=== PATIENT | male | born 1950 | race Caucasian/White ===

== ENCOUNTER 2016-05-15 13:06 | Emergency (ER) | payer MEDICARE, BC, OTHER ==
[~2016-05-15] VITALS: Ht 172.7 cm; Wt 70.8 kg
[~2016-05-15 13:06] MED LIST: ASPIRIN E.C.81 MG PO; B12 INJ.,1000 MCG/M; CARVEDILOL 1212.5 MG PO; DOCUSATE SODIU250 M1 PO; FERRO-TIME325 MG PO; FOLIC ACID1 MG; IRON TABLETS325 MG PO; LEVAQUIN750 MG PO; LISINOPRIL 10MG10 MG; LISINOPRIL 10MG10 MG PO; LOPRESSOR 25MG.25 MG PO; METOPROLOL 25MG; NORCO 325 MG-51 TAB PO; PHENOBARBITAL; PROTONIX 40MG T40 MG PO; ROBAXIN-750750 MG PO; SIMVASTATIN40 MG PO
--- NOTE | 2016-05-15 14:11 | Urgent Treatment Center Report ---
History of Present Issue Date/Time Seen by Provider 05/15/16 1330 Visit Reason Pt arrived:Walked Presenting Problem:SWELLING AND BRUISING TO L 4TH FINGER R/T FALL EARLY THIS AM. PT STATES "STRAIGHTENED MY FINGER BACK OUT AFTER THE FALL" Location if Accident: Onset of symptoms date/time:05/15/16 or onset unknown for: Have you (or family members/close friends) recently traveled outside the [place]? N If Yes, where/when: Have you had exposure to infectious disease within the past month? TB? Other? Specify: ALLERGIES Coded Allergies: dopamine (Mild, 03/03/16) Home Medications Active Scripts HYDROCODONE/ACETAMINOPHEN ([place] 5-325 Tablet) 1 TAB PO Q4HP PRN PAIN PER PATIENT #10 TAB Prov: 04/13/14 Ferrous Sulfate (Iron Tablet) 325 MG PO DAILY #30 ECT Ref 11 Prov: 04/13/14 Carvedilol (Carvedilol 12.5MG) 12.5 MG PO BID #60 TAB Ref 11 Prov: 04/13/14 Reported Medications Simvastatin (Simvastatin 40MG Tab) 20 MG PO QHS Aspirin (Aspirin E.c.) 81 MG PO DAILY Pantoprazole Sodium (Protonix 40MG TAB) 40 MG PO DAILY LISINOPRIL (Lisinopril) 5 MG PO DAILY Methocarbamol (Robaxin 750MG) 750 MG PO QHS History Medical History General CAD? No Angina: No [place]: Yes Hypertension? No Hyperlipidemia? No CHF? No DVT? No PE? No COPD? No Asthma? No Anemia? Yes GERD? No Gastric ulcers? No GI Bleed? No Hernia? No Thyroid Problems? No Hypothyroidism? No CVA? Yes Seizures? Yes Diabetes? No Renal Insuffiency? No UTI? No Stones? No BPH? No GB Disease: No Nephritic Syndrome? No Asplenia? No Hepatitis? Yes Sickle Cell Disease? No Arthritis? No Migraines? No Cataracts? No Glaucoma? No MRSA? No HIV? No TB? No Anxiety? No Depression? No Cancer? Yes Site: STOMACH - REMOVEDN More? No Immunization HX DT/Tetanus 5-10 Years Ago Flu 2013-FSN Pneumonia Received In Past Surgical Hx Previous Surgery?Y Lung Appendix Brain surgery STOMACH SURGERY FOR CA AICD Family History Family HX Diabetes Yes CAD Yes Hypertension No Hyperlipidemia No Cancer No TB No Social History Smoking Hx Smoker: Former Smoker Tobacco: Yes Type Cigarettes Packs/day 1 1/2 - 2 Packs Alcohol Alcohol: No Review of Systems All Other Systems Reviewed and Negative Comment Patient feel out of chair at home complaining of pain in his left ring finger and bilateral hand and wrist pain states that his right hurts worse than his left Physical Exam Vital Signs Vital Signs Date Time Temp Pulse Resp B/P Pulse O2 O2 Flow FiO2 Ox Delivery Rate 05/15 1340 97.6 77 18 148/80 95 05/15 1310 77 18 148/80 95 General Appearance normal appearance, no apparent distress, mild distress Respiratory Status Yes: trachea midline, chest symmetrical, non tender chest. No: respiratory distress. 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 No Results/Orders Orders Procedure Date/time Status UTC STABILIZE JOINT/AREA 05/15 1441 Active WRIST-3 VIEWS-RT 05/15 1347 Active WRIST-3 VIEWS-LT 05/15 1347 Active HAND-RT 3 VIEWS 05/15 1347 Active HAND-LT-3 VIEWS 05/15 1347 Active XRAY/CT/US XRAY/CT/US XR interpretation by reviewed by me Xray Results no fracture seen, WIll splint left ring finger, will verify reading with Radiologist and call patient if any changes Departure Departure Time of Disposition 1442 Disposition DC Home or Self Care(routine) Clinical Impression Primary Impression: Finger injury Qualifiers: Encounter type: initial encounter Laterality: left Qualified Code: S69.92XA - Unspecified injury of left wrist, hand and finger(s), initial encounter Condition STABLE Referrals Elisha Palomares MD (Family) Patient Instructions DI for Finger Sprain, How to Prevent Falls Additional Instructions Over the counter Motrin or Tylenol as needed for pain Follow up with family doctor Return if needed Discharge Counseling Counseled pt/family regarding diagnosis, test results, home care, follow up needs at [phone]
[2016-05-15 14:45] VITALS: BP 148/80
--- NOTE | 2016-05-15 17:01 | RADIOLOGY REPORT PS360 ---
WRIST-3 VIEWS-LT INDICATION: Left wrist pain Fell out of chair and hurt hand and wrist. TECHNIQUE: 3 views COMPARISON: Left hand 3 views from today and right wrist from today FINDINGS: The left wrist appears intact No discrete fracture nor dislocation evident Slight undulation cortex at distal radius most likely reflects residual from old close growth plate. No acute fracture. Fat planes appear normal anterior to the wrist. Small corticated accessory ossification at the ulnar styloid Carpals with normal relationships no good evidence of fracture. If pain at snuffbox may want to consider follow-up ulnar deviation navicular views. Visualized joint space well maintained. Normal mineralization. No obvious radio opaque foreign bodies. IMPRESSION: No acute fracture. Left wrist intact.
--- NOTE | 2016-05-15 17:08 | RADIOLOGY REPORT PS360 ---
WRIST-3 VIEWS-RT ORDERING PHYSICIAN : DONALDO SY APRN PATIENT AGE: 65 years GENDER: Male INDICATION: FELL OUT OF CHAIR fell on right and left hand and wrist. Pain at left ring finger and left breast TECHNIQUE: 3 views right wrist COMPARISON: Right hand from today FINDINGS Diffuse mineralization. Right hand and wrist compared to the left Patient has had a stroke I am told he fell landing on right wrist but has no pain at the right wrist . However the lack of pain may reflect some decreased sensitivity here due to stroke. Radiographically there is suspicion a very subtle nondisplaced hairline macro fracture through the distal metaphysis of the radius. The patient has no pain here than simple follow-up would be adequate particularly since it sounds of this is a unusual right wrist and hand The carpals appear intact.. Findings discussed with Donaldo AYALA at [facility] IMPRESSION: Radiographically question & suspect of a very subtle nondisplaced hairline microfracture distal metaphysis of the distal right radius. However I'm told patient did not have pain here. Thus This can be followed clinically
--- NOTE | 2016-05-15 17:10 | RADIOLOGY REPORT PS360 ---
HAND-RT 3 VIEWS ORDERING PHYSICIAN : DONALDO SY APRN PATIENT AGE: 65 years GENDER: Male INDICATION: FELL OUT OF CHAIR Right hand pain TECHNIQUE: 3 views right hand COMPARISON: Left hand 3 views FINDINGS Demineralization of the right hand versus left. No acute fracture nor dislocation at right hand. Again question and suspect of a possible very subtle the distal radial metaphysis as discussed on right wrist report. Carpals, fingers and metacarpals appear intact. Minor degenerative changes fourth MCP joint IMPRESSION: ----- No fracture involving fingers are right hand (Again cannot exclude subtle nondisplaced hairline macro fracture at distal radial metaphysis)
--- NOTE | 2016-05-15 17:12 | RADIOLOGY REPORT PS360 ---
HAND-LT-3 VIEWS ORDERING PHYSICIAN : DONALDO SY APRN PATIENT AGE: 65 years GENDER: Male INDICATION: FELL OUT OF CHAIR Pain mainly at the ring finger. HISTORY suggest Dislocated and reduced IP joint dislocation by patient. TECHNIQUE: 3 views left hand COMPARISON: Right hand from today FINDINGS The patient's injury and pain was at the ring finger. No fracture evident. Normal relationships. IP joints MCP joint satisfactory Small osseous fragment at the lateral margin of fifth MCP joint noted but I understand there is no pain here thus these may merely reflect some minimal dystrophic calcifications or old injury. Other fingers unremarkable. IMPRESSION: The injured painful left ring finger is intact Minimal calcification along lateral margin fifth MCP joint most likely old finding as patient with no pain here
== END 2016-05-15 14:50 | disposition home or self-care (01) ==
LOC: ER 13:06 → UTC 13:22
PROC: 2W3KX1Z Immobilization of Left Finger using Splint (ICD-10-PCS; principal; 2016-05-15)
DX: S69.92XA Unspecified injury of left wrist, hand and finger(s), initial encounter (principal); W01.0XXA Fall on same level from slipping, tripping and stumbling without subsequent striking against object, initial encounter; Y92.009 Unspecified place in unspecified non-institutional (private) residence as the place of occurrence of the external cause

== ENCOUNTER 2016-10-25 11:26 | Emergency (ER) | payer MEDICARE, BC, OTHER ==
[~2016-10-25] VITALS: Ht 172.7 cm; Wt 74.8 kg
[2016-10-25 11:51] LABS: LYMPH # 1.1 K/mm3 (0.7-4.5); LYMPH % 12.4 % (10-50)
--- NOTE | 2016-10-25 11:51 | Emergency Room Report ---
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 N Clinical Suspician of Infection? N Mental Status: 1 - Regular (Normal Baseline) Sepsis Risk:Low Sepsis Risk Have you (or family members/close friends) recently traveled outside the [place]? N If Yes, where/when: Have you had exposure to infectious disease within the past month? N TB? Other? Specify: Patient with hx of CVA remotely, baseline weakness/decreased sensation on right with expressive aphasia baseline; therefore, information obtained from patient as well as his hired general internal medicine doctor, and EMS. Patient has had periumbilical abdominal pain since 10/24/16 with diminished appetite; NPO today and ate eggs yesterday; moving bowels well; denies blood from above or below; no fever; no cough or syncope; no new neurological sx. No urinary sx and usually urinates TID baseline. Pain is nonradiating. Hx of appy. Cared for at [facility], and reports hx of colon CA. Prior hemoglobin was just above 9 in April,. ALLERGIES Coded Allergies: dopamine (Mild, 03/03/16) Home Medications Active Scripts HYDROCODONE/ACETAMINOPHEN ([place] 5-325 Tablet) 1 TAB PO Q4HP PRN PAIN PER PATIENT #10 TAB Prov: 04/13/14 Ferrous Sulfate (Iron Tablet) 325 MG PO DAILY #30 ECT Ref 11 Prov: 04/13/14 Carvedilol (Carvedilol 12.5MG) 12.5 MG PO BID #60 TAB Ref 11 Prov: 04/13/14 Reported Medications Simvastatin (Simvastatin 40MG Tab) 20 MG PO QHS Aspirin (Aspirin E.c.) 81 MG PO DAILY Pantoprazole Sodium (Protonix 40MG TAB) 40 MG PO DAILY LISINOPRIL (Lisinopril) 5 MG PO DAILY Methocarbamol (Robaxin 750MG) 750 MG PO QHS History Medical History General CAD? No Angina: No CA: Yes Hypertension? No Hyperlipidemia? No CHF? No DVT? No PE? No COPD? No Asthma? No Anemia? Yes GERD? No Gastric ulcers? No GI Bleed? No Hernia? No Thyroid Problems? No Hypothyroidism? No CVA? Yes Seizures? Yes Diabetes? No Renal Insuffiency? No End Stage Renal Disease? No UTI? No Stones? No BPH? No GB Disease: No Nephritic Syndrome? No Asplenia? No Hepatitis? Yes Sickle Cell Disease? No Arthritis? No Migraines? No Cataracts? No Glaucoma? No MRSA? No HIV? No TB? No Anxiety? No Depression? No Cancer? Yes Site: STOMACH - REMOVEDN More? No Immunization Hx DT/Tetanus 5-10 Years Ago Flu 5709-4011 Flu Season Pneumonia Received In Past Surgical Hx Previous Surgery?Y Lung Appendix Brain surgery STOMACH SURGERY FOR CA AICD Family History Family Hx Diabetes Yes CAD Yes Hypertension No Hyperlipidemia No Cancer No TB No Social History Smoking Hx Smoker: Former Smoker Tobacco: Yes Type Cigarettes Packs/day 1 1/2 - 2 Packs Alcohol Alcohol: No Review of Systems All Other Systems Reviewed and Negative Gastrointestinal see HPI Psychiatric/Neurological pre-existing deficit Physical Exam Vital Signs Vital Signs Date Time Temp Pulse Resp B/P Pulse O2 O2 Flow FiO2 Ox Delivery Rate 10/25 1129 98.4 99 18 164/67 97 General Appearance normal appearance, WD/WN, no apparent distress Eye Exam - bilateral eye normal exam, bilateral eye PERRL Neck normal inspection, non-tender, supple, full range of motion Respiratory Status Yes: trachea midline, chest symmetrical, non tender chest. No: respiratory distress, tender on palpation, use of accessory muscles, pain on inspiration, pain on expiration, productive cough, non productive cough. Lung Sounds bilateral: normal breath sounds, lungs clear. Cardiovascular normal exam, regular rate/rhythm, no peripheral edema, no gallop, no JVD, no murmur, no rub, normal peripheral pulses Gastrointestinal normal bowel sounds, normal exam, soft, no organomegaly, no pulsatile mass, no guarding, no rebound Extremities normal inspection, no calf tenderness, no pedal edema Neurologic alert, oriented x 3, baseline expressive aphasia; baseline R hemiparesis and right facial droop; is alert and answers questions appropriately ; no tremor. Glascow Coma Scale Glascow Coma Scale Response Value EYE response: 4 Spontaneously 4 MOTOR response: 6 OBEYS 6 VERBAL response: 5 Oriented & Converses 5 Total 15 Skin intact, warm/dry, no rash cons.w/shingles, pallor Medical Decision Making LABS/Meds/Orders Pt receiving controlled substance in ED? No Results/Orders Laboratory Tests 10/25/16 1240: Urine Color YELLOW, Urine Appearance CLEAR, Urine pH 6.5, Ur Specific [place] 1.015, Urine Protein NEGATIVE, Urine Ketones NEGATIVE, Urine Blood NEGATIVE, Urine Nitrate NEGATIVE, Urine Bilirubin NEGATIVE, Urine Urobilinogen 0.2, Ur Leukocyte Esterase NEGATIVE, Urine WBC OCC, Urine Bacteria 1+, Hyaline Casts 3-5 , Urine Glucose NEGATIVE 10/25/16 1118: Sodium 130 L, Potassium 4.1, Chloride 94 L, Carbon Dioxide 27, BUN 9, Creatinine 1.0, Estimated Creat Clear 77, Estimated GFR (MDRD) 75, Glucose 143 H, Calcium 9.1, Total Bilirubin 0.3, AST 16, ALT 13, Alkaline Phosphatase 130 H , Total Protein 8.1, Albumin 3.6, Globulin 4.5 H, Albumin/Globulin Ratio 0.8 L , Amylase 101, Lipase 185, WBC 8.9, RBC 3.85 L, Hgb 11.5 L, Hct 34.0 L, MCV 88.3, RDW 13.6, Plt Count 454 H, MPV 7.1 L, Gran % 78.2, Gran # 7.0, Lymphocytes % 12.4, Monocytes % 5.9, Eosinophils % 3.1, Basophils % 0.4, Lymphocytes # 1.1, Monocytes # 0.5, Eosinophils # 0.3, Basophils # 0.0, PUBS MCHC 33.8, MCH 29.8 Current Medication Orders Sig/Rita Start time Last Medication Dose Route Stop Time Status Admin Sodium Chloride 10 ML PRN PRN 10/25 1145 AC IV 10/26 1140 Orders Procedure Date/time Status DIET-NOTHING BY MOUTH 10/25 D Active URINALYSIS/COMPLETE 10/[address] ABD/PELVIS REQ 10/25 1140 Complete IV SALINE LOCK 10/25 1140 Active LIPASE 10/25 1140 Complete CBC WITH AUTO DIFF 10/25 1140 Complete CHEM 12 PROFILE 10/25 1140 Complete AMYLASE 10/25 1140 Complete XRAY/CT/US XRAY/CT/US CT abdomen, pelvis CT interpretation by reviewed by me (report reviewed) Time results known: 1316 CT Results normal/NAD (large gallstone) Departure Departure Time of Disposition 1316 Disposition DC Home or Self Care(routine) Clinical Impression Primary Impression: Cholelithiasis Condition STABLE Patient Instructions Gallstones Additional Instructions See the surgeon at [facility] for large gallstone. Rx Zofran. Discharge Counseling Counseled pt/family regarding diagnosis, test results, medications/RX, home care, alcohol counseling,> 3min Prescriptions Current Visit Scripts Ondansetron (Zofran 4MG Odt) 4 MG PO Q6HP PRN NAUSEA AND VOMITING #10 ODT generic acceptable ED Critical Care Critical Care No at 0837
--- NOTE | 2016-10-25 11:51 | Emergency Room Report ---
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 N Clinical Suspician of Infection? N Mental Status: 1 - Regular (Normal Baseline) Sepsis Risk:Low Sepsis Risk Have you (or family members/close friends) recently traveled outside the [place]? N If Yes, where/when: Have you had exposure to infectious disease within the past month? N TB? Other? Specify: Patient with hx of CVA remotely, baseline weakness/decreased sensation on right with expressive aphasia baseline; therefore, information obtained from patient as well as his hired diamond cleaner, and EMS. Patient has had periumbilical abdominal pain since 10/24/16 with diminished appetite; NPO today and ate eggs yesterday; moving bowels well; denies blood from above or below; no fever; no cough or syncope; no new neurological sx. No urinary sx and usually urinates TID baseline. Pain is nonradiating. Hx of appy. Cared for at the [facility], and reports hx of colon CA. Prior hemoglobin was just above 9 in April,. ALLERGIES Coded Allergies: dopamine (Mild, 03/03/16) Home Medications Active Scripts HYDROCODONE/ACETAMINOPHEN ([place] 5-325 Tablet) 1 TAB PO Q4HP PRN PAIN PER PATIENT #10 TAB Prov: 04/13/14 Ferrous Sulfate (Iron Tablet) 325 MG PO DAILY #30 ECT Ref 11 Prov: 04/13/14 Carvedilol (Carvedilol 12.5MG) 12.5 MG PO BID #60 TAB Ref 11 Prov: 04/13/14 Reported Medications Simvastatin (Simvastatin 40MG Tab) 20 MG PO QHS Aspirin (Aspirin E.c.) 81 MG PO DAILY Pantoprazole Sodium (Protonix 40MG TAB) 40 MG PO DAILY LISINOPRIL (Lisinopril) 5 MG PO DAILY Methocarbamol (Robaxin 750MG) 750 MG PO QHS History Medical History General CAD? No Angina: No [place]: Yes Hypertension? No Hyperlipidemia? No CHF? No DVT? No PE? No COPD? No Asthma? No Anemia? Yes GERD? No Gastric ulcers? No GI Bleed? No Hernia? No Thyroid Problems? No Hypothyroidism? No CVA? Yes Seizures? Yes Diabetes? No Renal Insuffiency? No End Stage Renal Disease? No UTI? No Stones? No BPH? No GB Disease: No Nephritic Syndrome? No Asplenia? No Hepatitis? Yes Sickle Cell Disease? No Arthritis? No Migraines? No Cataracts? No Glaucoma? No MRSA? No HIV? No TB? No Anxiety? No Depression? No Cancer? Yes Site: STOMACH - REMOVEDN More? No Immunization Hx DT/Tetanus 5-10 Years Ago Flu 2122-5159 Flu Season Pneumonia Received In Past Surgical Hx Previous Surgery?Y Lung Appendix Brain surgery STOMACH SURGERY FOR CA AICD Family History Family Hx Diabetes Yes CAD Yes Hypertension No Hyperlipidemia No Cancer No TB No Social History Smoking Hx Smoker: Former Smoker Tobacco: Yes Type Cigarettes Packs/day 1 1/2 - 2 Packs Alcohol Alcohol: No Review of Systems All Other Systems Reviewed and Negative Gastrointestinal see HPI Psychiatric/Neurological pre-existing deficit Physical Exam Vital Signs Vital Signs Date Time Temp Pulse Resp B/P Pulse O2 O2 Flow FiO2 Ox Delivery Rate 10/25 1129 98.4 99 18 164/67 97 General Appearance normal appearance, WD/WN, no apparent distress Eye Exam - bilateral eye normal exam, bilateral eye PERRL Neck normal inspection, non-tender, supple, full range of motion Respiratory Status Yes: trachea midline, chest symmetrical, non tender chest. No: respiratory distress, tender on palpation, use of accessory muscles, pain on inspiration, pain on expiration, productive cough, non productive cough. Lung Sounds bilateral: normal breath sounds, lungs clear. Cardiovascular normal exam, regular rate/rhythm, no peripheral edema, no gallop, no JVD, no murmur, no rub, normal peripheral pulses Gastrointestinal normal bowel sounds, normal exam, soft, no organomegaly, no pulsatile mass, no guarding, no rebound Extremities normal inspection, no calf tenderness, no pedal edema Neurologic alert, oriented x 3, baseline expressive aphasia; baseline R hemiparesis and right facial droop; is alert and answers questions appropriately ; no tremor. Glascow Coma Scale Glascow Coma Scale Response Value EYE response: 4 Spontaneously 4 MOTOR response: 6 OBEYS 6 VERBAL response: 5 Oriented & Converses 5 Total 15 Skin intact, warm/dry, no rash cons.w/shingles, pallor Medical Decision Making LABS/Meds/Orders Pt receiving controlled substance in ED? No Results/Orders Laboratory Tests 10/25/16 1240: Urine Color YELLOW, Urine Appearance CLEAR, Urine pH 6.5, Ur Specific [place] 1.015, Urine Protein NEGATIVE, Urine Ketones NEGATIVE, Urine Blood NEGATIVE, Urine Nitrate NEGATIVE, Urine Bilirubin NEGATIVE, Urine Urobilinogen 0.2, Ur Leukocyte Esterase NEGATIVE, Urine WBC OCC, Urine Bacteria 1+, Hyaline Casts 3-5 , Urine Glucose NEGATIVE 10/25/16 1118: Sodium 130 L, Potassium 4.1, Chloride 94 L, Carbon Dioxide 27, BUN 9, Creatinine 1.0, Estimated Creat Clear 77, Estimated GFR (MDRD) 75, Glucose 143 H, Calcium 9.1, Total Bilirubin 0.3, AST 16, ALT 13, Alkaline Phosphatase 130 H , Total Protein 8.1, Albumin 3.6, Globulin 4.5 H, Albumin/Globulin Ratio 0.8 L , Amylase 101, Lipase 185, WBC 8.9, RBC 3.85 L, Hgb 11.5 L, Hct 34.0 L, MCV 88.3, RDW 13.6, Plt Count 454 H, MPV 7.1 L, Gran % 78.2, Gran # 7.0, Lymphocytes % 12.4, Monocytes % 5.9, Eosinophils % 3.1, Basophils % 0.4, Lymphocytes # 1.1, Monocytes # 0.5, Eosinophils # 0.3, Basophils # 0.0, PUBS MCHC 33.8, MCH 29.8 Current Medication Orders Sig/Rita Start time Last Medication Dose Route Stop Time Status Admin Sodium Chloride 10 ML PRN PRN 10/25 1145 AC IV 10/26 1140 Orders Procedure Date/time Status DIET-NOTHING BY MOUTH 10/25 D Active URINALYSIS/COMPLETE 10/[address] ABD/PELVIS REQ 10/25 1140 Complete IV SALINE LOCK 10/25 1140 Active LIPASE 10/25 1140 Complete CBC WITH AUTO DIFF 10/25 1140 Complete CHEM 12 PROFILE 10/25 1140 Complete AMYLASE 10/25 1140 Complete XRAY/CT/US XRAY/CT/US CT abdomen, pelvis CT interpretation by reviewed by me (report reviewed) Time results known: 1316 CT Results normal/NAD (large gallstone) Departure Departure Time of Disposition 1316 Disposition DC Home or Self Care(routine) Clinical Impression Primary Impression: Cholelithiasis Condition STABLE Patient Instructions Gallstones Additional Instructions See the surgeon at the [facility] for large gallstone. Rx Zofran. Discharge Counseling Counseled pt/family regarding diagnosis, test results, medications/RX, home care, alcohol counseling,> 3min Prescriptions Current Visit Scripts Ondansetron (Zofran 4MG Odt) 4 MG PO Q6HP PRN NAUSEA AND VOMITING #10 ODT generic acceptable ED Critical Care Critical Care No at 9726
[2016-10-25 12:00] LABS: HEMOGLOBIN 11.5 g/dL (14.1-18.0)
--- NOTE | 2016-10-25 12:45 | RADIOLOGY REPORT PS360 ---
CT ABD PELVIS W/O CONTRAST CLINICAL INDICATION: ABD PAIN AROUND UMBILICUS ORDERING PHYSICIAN: Mellisa Robles MD PATIENT AGE: 65 years COMPARISON: None TECHNIQUE: Axial images obtained with sagittal and coronal reformats. PROCEDURE: Oral Contrast: None IV Contrast: None . FINDINGS: The lung bases are clear. The liver, spleen, adrenal glands, and pancreas are unremarkable. There is a large gallstone present measuring 2.6 cm. No renal calculi or ureteral calculi or hydronephrosis is evident. There is a 1.8 cm isodense involving the left kidney consistent with a renal cyst. No intestinal obstruction or free air. There is no evidence of appendicitis. The appendix is not identified however, no secondary signs of appendicitis apparent no evidence of diverticulitis. No abnormal fluid collections. Unremarkable appearing urinary bladder. There are postsurgical changes of the right hip some mild flattening of the right femoral head and osteoarthritic change of the right hip. IMPRESSION: 1. Cholelithiasis. 2. Other nonacute findings as described above
[2016-10-25 12:50] LABS: URINE BILIRUBIN - DIPSTICK NEGATIVE (NEG); URINE BLOOD NEGATIVE (NEG)
[2016-10-25] MEDS ORDERED: ZOFRAN ODT4 MG PO (13:18)
[2016-10-25 13:44] VITALS: BP 164/67
== END 2016-10-25 13:46 | disposition home or self-care (01) ==
LOC: ER 11:26
PROVIDERS: Emergency Medicine
DX: K80.20 Calculus of gallbladder without cholecystitis without obstruction (principal); Z79.899 Other long term (current) drug therapy; R56.9 Unspecified convulsions; Z87.891 Personal history of nicotine dependence

== ENCOUNTER 2016-12-02 18:43 | Emergency (ER) | payer MEDICARE, BC, OTHER ==
[~2016-12-02] VITALS: Ht 172.7 cm; Wt 77.1 kg
[~2016-12-02 18:43] MED LIST changes: +ZOFRAN ODT4 MG PO
--- NOTE | 2016-12-02 19:17 | Emergency Room Report ---
History of Present Illness Time Seen by 1913 Presenting Problem in Triage Pt arrived:Wheelchair Presenting Problem:PT STATES THAT HE IS SICK AND HAS BEEN DRY HEAVING FOR 3 DAYS. OBSERVED LAW T PT HAS DIFFICUTLY FORMING THOUGHTS AND SENTENCES. PT STATES THE HE TAKES LOT OF PILLS EVERY DAY. PT HAS NOTABLE RIGHT SIDED WEAKNESS. STATES HE HAD A STROKE 48 YRS AGO. Onset of symptoms date/time:/ or onset unknown for:MEDICAL HX UNKNOWN Treatment Prior to Arrival: [employer] Provided by: Sepsis Risk Assessment: Temp: 98.3 B/P: 194/78 MAP: 116 Pulse: 99 Resp: 22 Recent fever? N Clinical Suspician of Infection? N Mental Status: 2 - Mildly Altered Sepsis Risk:Possible Sepsis Risk Have you (or family members/close friends) recently traveled outside the [place]? N If Yes, where/when: Have you had exposure to infectious disease within the past month? TB? Other? Specify: Patient reports hx of large gallstone (diagnosed one week ago in ED) , hx colon CA with chronic dark stools and no change in stool pattern or formation, states that in the past three days he is having "dry heaves" without blood. Only able to take pills today, ate only a little bit of cake yesterday. States he feels hot but no cough, no flu sx, no chest pain but has hx of defibrillator, no diaphoresis, no SOB. He has baseline expressive aphasia and R hemiparesis, so hpi and ROS are limited due to language barrier. No new neurological sx today. Exam Limitations physical impairment ALLERGIES Coded Allergies: dopamine (Mild, 03/03/16) Home Medications Active Scripts Ondansetron (Zofran 4MG Odt) 4 MG PO Q6HP PRN NAUSEA AND VOMITING #10 ODT Prov: 10/25/16 HYDROCODONE/ACETAMINOPHEN ([place] 5-325 Tablet) 1 TAB PO Q4HP PRN PAIN PER PATIENT #10 TAB Prov: 04/13/14 Ferrous Sulfate (Iron Tablet) 325 MG PO DAILY #30 ECT Ref 11 Prov: 04/13/14 Carvedilol (Carvedilol 12.5MG) 12.5 MG PO BID #60 TAB Ref 11 Prov: 04/13/14 Reported Medications Simvastatin (Simvastatin 40MG Tab) 20 MG PO QHS Aspirin (Aspirin E.c.) 81 MG PO DAILY Pantoprazole Sodium (Protonix 40MG TAB) 40 MG PO DAILY LISINOPRIL (Lisinopril) 5 MG PO DAILY Methocarbamol (Robaxin 750MG) 750 MG PO QHS (Travis ANNA, Mellisa Ley) History Medical History General CAD? No Angina: No MO: Yes Hypertension? No Hyperlipidemia? No CHF? No DVT? No PE? No COPD? No Asthma? No Anemia? Yes GERD? No Gastric ulcers? No GI Bleed? No Hernia? No Thyroid Problems? No Hypothyroidism? No CVA? Yes Seizures? Yes Diabetes? No Renal Insuffiency? No End Stage Renal Disease? No UTI? No Stones? No BPH? No GB Disease: No Nephritic Syndrome? No Asplenia? No Hepatitis? Yes Sickle Cell Disease? No Arthritis? No Migraines? No Cataracts? No Glaucoma? No MRSA? No HIV? No TB? No Anxiety? No Depression? No Cancer? Yes Site: STOMACH - REMOVEDN More? Yes Additional hx: DEFIBRILLATOR PLACED Immunization Hx DT/Tetanus 5-10 Years Ago Flu [id number] Flu Season Pneumonia Received In Past Surgical Hx Previous Surgery?Y Lung Appendix Brain surgery STOMACH SURGERY FOR CA AICD Family History Family Hx Diabetes Yes CAD Yes Hypertension No Hyperlipidemia No Cancer No TB No Social History Smoking Hx Smoker: Former Smoker Tobacco: No Packs/day 1 1/2 - 2 Packs Alcohol Alcohol: No (Travis ANNA, Mellisa Ley) Review of Systems All Other Systems Reviewed and Negative (limited: expressive aphasia) Gastrointestinal see HPI Psychiatric/Neurological denies no symptoms reported, pre-existing deficit (Travis NANA, Mellisa Ley) Physical Exam Vital Signs Vital Signs Date Time Temp Pulse Resp B/P Pulse O2 O2 Flow FiO2 Ox Delivery Rate 12/02 2304 98.3 88 22 154/74 99 12/02 2205 88 22 154/74 99 12/02 1852 98.3 99 22 194/78 99 General Appearance normal appearance, WD/WN, no apparent distress Eye Exam - bilateral eye normal exam, bilateral eye PERRL, bilateral eye EOMI Neck normal inspection, non-tender, supple Respiratory Status Yes: trachea midline, chest symmetrical, non tender chest. No: respiratory distress, tender on palpation, use of accessory muscles, pain on inspiration, pain on expiration, productive cough, non productive cough. Lung Sounds bilateral: normal breath sounds, lungs clear. Cardiovascular normal exam, regular rate/rhythm, no peripheral edema, no gallop, no JVD, no murmur, no rub, normal peripheral pulses Gastrointestinal normal bowel sounds, normal exam, non tender, soft, no organomegaly, no pulsatile mass, no guarding, no rebound Extremities non-tender, normal range of motion, normal inspection, normal capillary refill, no calf tenderness, no pedal edema Neurologic expressive aphasia makes examination challenging; is alert, cooperative, answers questions appropriately in terms of general understanding but unable to select appropriate words; obvious R sided hemiparesis. Glascow Coma Scale Glascow Coma Scale Response Value EYE response: 4 Spontaneously 4 MOTOR response: 6 OBEYS 6 VERBAL response: 5 Oriented & Converses 5 Total 15 Skin intact, normal color, warm/dry (Travis ANNA, Mellias Ley) Medical Decision Making LABS/Meds/Orders Pt receiving controlled substance in ED? No Results/Orders Laboratory Tests 12/02/162146: Urine Color YELLOW, Urine Appearance CLEAR, Urine pH 7.0, Ur Specific [place] 1.015, Urine Protein NEGATIVE, Urine Ketones TRACE H, Urine Blood NEGATIVE, Urine Nitrate NEGATIVE, Urine Bilirubin NEGATIVE, Urine Urobilinogen 0.2, Ur Leukocyte Esterase NEGATIVE, Urine WBC OCC, Amorphous Sediment TRACE, Urine Mucus TRACE, Urine Glucose NEGATIVE 12/02/16 1950: Sodium 126 L, Potassium 3.8, Chloride 93 L, Carbon Dioxide 26, BUN 6 L, Creatinine 1.1, Estimated Creat Clear 71, Estimated GFR (MDRD) 67, Glucose 103, Calcium 9.1, Total Bilirubin 0.4, AST 12 L, ALT 15, Alkaline Phosphatase 117 H , Troponin I < 0.02, Total Protein 8.1, Albumin 3.9, Globulin 4.2 H, Albumin/ Globulin Ratio 0.9 L, Amylase 87, Lipase 168, WBC 9.8, RBC 3.77 L, Hgb 11.1 L , Hct 33.6 L, MCV 89.1, RDW 13.3, Plt Count 274, MPV 7.7, Gran % 77.9, Gran # 7.7, Lymphocytes % 14.1, Monocytes % 5.9, Eosinophils % 1.6, Basophils % 0.5, Lymphocytes # 1.4, Monocytes # 0.6, Eosinophils # 0.2, Basophils # 0.1, PUBS MCHC 33.1, MCH 29.5, Alcohols 0 Current Medication Orders Sig/Rita Start time Last Medication Dose Route Stop Time Status Admin Gabapentin 0 .STK-MED ONE 12/02 2258 DC .ROUTE Gabapentin 0 .STK-MED ONE 12/03 2255 DC .ROUTE Gabapentin 300 MG ONCE ONE 12/02 2244 DC 12/02 PO 12/02 Sodium Chloride 1,000 ML .Q1H1M 12/02 2214 DCD 12/02 IV 12/02 2314 2210 Ondansetron HCl 0 .STK-MED ONE 12/02 2208 DC .ROUTE Sodium Chloride 1,000 ML .STK-MED ONE 12/02 2208 DC IV Ondansetron HCl 4 MG ONCE ONE 12/02 2199 DC 12/02 IV 12/02 Sodium Chloride 10 ML PRN PRN 12/02 1944 DCD IV 12/04 1931 Orders Procedure Date/time Status DIET-NOTHING BY MOUTH 12/[address] ABD & PELVIS W/O CONTRAST 12/03 1935 Active ELECTROCARDIOGRAM REQUEST 12/[address] ABD/PELVIS REQ 12/02 1932 Active CHEST-PORTABLE 12/02 1932 Active IV SALINE LOCK 12/02 1932 Active URINALYSIS/COMPLETE 12/02 1932 Complete TROPONIN I 12/02 1932 Complete LIPASE 12/02 1932 Complete CBC WITH AUTO DIFF 12/02 1932 Complete CHEM 12 PROFILE 12/02 1932 Complete AMYLASE 12/02 1932 Complete ALCOHOL 12/02 1932 Complete 12 LEAD EKG-[facility] (INITIAL) 12/02 UNK Active CM/EKG CM/EKG Comments EKG interpreted by Senthil Brannon MD: Rhythm: sinus Rate: 78 [place]: normal Ectopy: none Conduction: normal ST Segment Changes: none T Wave Changes: none Q Waves: none No evidence of acute ischemia or injury Baseline artifact present, but I consider the EKG adequate for accurate interpretation. XRAY/CT/US XRAY/CT/US XRAY chest Comment Chest x-ray interpreted by Senthil Brannon M.D. No infiltrate, pneumothorax, pleural effusion, or wide mediastinum. CT abdomen, pelvis Comment CT scan interpreted by [facility] radiologist. Faxed report received and reviewed: No acute findings Progress - 10:40 PM: Daughter is now present. She states that the patient ran out of gabapentin several days ago. She feels he is withdrawing. She says the last time he ran out he had same symptoms. She says he has Zofran at home, but apparently has not taken any. She says that the gabapentin prescription has been called in, but is not yet available. She requests a prescription. (Senthil Brannon MD) Departure Departure Time of Disposition 2007 Disposition Still a Patient Clinical Impression Primary Impression: Vomiting Condition STABLE ED Critical Care Critical Care No (Mellisa Robles MD) Departure Patient Instructions DI for Vomiting -- Adult Additional Instructions You may take Zofran as needed. Restart gabapentin as prescribed. Additional instructions for ABDOMINAL PAIN: See your physician as soon as possible for further evaluation. Return immediately if worsening abdominal pain, vomiting, shortness of breath, fever, vomiting of blood or abdominal distention. Prescriptions Current Visit Scripts Gabapentin 300 MG PO TID #21 TAB (Senthil Brannon MD) at 2009 at 2331
[2016-12-02 19:58] LABS: HEMOGLOBIN 11.1 g/dL (14.1-18.0); LYMPH # 1.4 K/mm3 (0.7-4.5); LYMPH % 14.1 % (10-50)
[2016-12-02 20:14] LABS: BUN 6 mg/dL (7-18); GFR (ESTIMATED) 67 ML/MIN (>60)
[2016-12-02 21:54] LABS: URINE BILIRUBIN - DIPSTICK NEGATIVE (NEG); URINE BLOOD NEGATIVE (NEG)
[2016-12-02] MEDS ORDERED: GABAPENTIN300 M1 PO (22:42)
[2016-12-02 23:04] VITALS: BP 154/74
--- NOTE | 2016-12-03 10:12 | RADIOLOGY REPORT PS360 ---
CHEST-PORTABLE HISTORY: n/v w/ cardiac hx Patient Age: 66 years: Male Ordering Physician: Senthil Brannon MD TECHNIQUE: AP portable upright chest COMPARISON :Prior chest film 04/15/2014. FINDINGS Nothing definitely acute. Pacer device again seen overlying the left chest . The atrial and ventricular leads appear intact.. The lungs are clear with no active disease. Heart mohan and mediastinal structures appear satisfactory and stable. Borderline cardiomegaly. Likely coronary artery stent noted at superior left heart border. Calcified granuloma superior to the left mohan. Other appears to be a old healed/healingPosterior right sixth rib fracture IMPRESSION: Nothing definitely acute. Lungs clear. Pacer overlying left chest with atrial & ventricular leads intact Old right sixth rib fracture noted
--- NOTE | 2016-12-03 10:40 | RADIOLOGY REPORT PS360 ---
CT ABD PELVIS W/O CONTRAST HISTORY: HEAVING, CANT EAT. Gagging vomiting nausea abdominal pain previous stroke Patient Age: 66 years: Male Ordering Physician: Senthil Brannon MD TECHNIQUE: Helical CT scanning abdomen pelvis with no oral nor IV contrast. COMPARISON :Previous CT abdomen pelvis 10/25/2016 FINDINGS Heart normal size with likely coronary stents in place Lower thorax.: Any nodule right lung base appears stable. & More likely benign: .- small 4 mm nodular densities at periphery the right lung base, (axial image 8), is again evident & has not changed appreciably since October 25, 2016.. -Also on coronal image 15-at axial image 15 there are 2 small nodular density just above the right hemidiaphragm which appears stable. I didn't favor these are benign granulomatous features abut would benefit from 6 month follow-up to confirm stability definitive history of smoking. Abdomen/ Pelvis: Lack of oral and iv contrast decreases sensitivity Liver. No focal lesion. No biliary ductal dilatation Gallbladder. Large calcified gallstone complex measuring 26 mm mm length x 9 mm. AP.. Additional smaller stone 1 cm towards fundus of gallbladder. . Pancreas adrenals spleen unremarkable. Kidneys.: No urinary tract calculi nor obstruction Right kidney. No calculi. Unremarkable. Left kidney: cysts at lower, mid and upper pole left kidney.: - 16 mm cystic area at the lower pole left kidney., Question subtle additional density towards its posterior wall on this noncontrast study.. On. Would categorize as a Bosniak 2 cyst more likely benign cyst but may benefit from follow-up to further evaluate. There is a 14 mm benign-appearing cyst at posterior aspect midportion left kidney- best seen sagittal image 71 coronal image 46.. There is 12 mm benign-appearing fluid density cyst is seen at the upper pole left kidney Pelvis. Small prostate. Bladder wall upper normal thickness may benefit from correlation with urinalysis. Seminal vesicles unremarkable. No pelvic adenopathy.. Right hip fixation pins yield streak artifact. Suspect avascular necrosis at right femoral head with flattening and subchondral cystic changes at cap of right femoral head. Upper normal density at superior left femoral head.. GI tract. Stomach with generous wall thickness is suggested throughout the particularly at the greater curvature.. Requires clinical correlation.. This may be exaggerated by the lack of distention but still appears to be rather generous thickness of the less If upper abdominal/ epigastric pain may warrant further evaluate stomach Otherwise small bowel unremarkable. Large bowel with minimal stool. Unremarkable. No wall thickening within small or large bowel. Appendix is been removed. Terminal ileum Unremarkable. . No free air or fluid and abdomen or pelvis. No mesenteric or retroperitoneal adenopathy. Aorta calcified with normal caliber Degenerative disc bulge most evident L4/5. No lesions and spine IMPRESSION 1 No acute findings abdomen or pelvis. 2. Generous wall thickness at stomach particularly along the greater curvature warrants correlation... This may be exaggerated by lack of distention... Note comments in text 3 Cholelithiasis again noted. 4. Prominent arthritic superior right femoral head most reflecting Avascular necrosis right femoral head.,. Previous pinning right hip 5. Additional minor observations: These Most likely benign features with no change since last last study, but would benefit from follow-up.: -Three Small 4 mm or less nodular densities at right lung base. -Left kidney. 3 most likely benign cysts identified..
== END 2016-12-02 23:13 | disposition still patient (30) ==
LOC: ER 18:43
PROVIDERS: Emergency Medicine
DX: R11.10 Vomiting, unspecified (principal); Z88.8 Allergy status to other drugs, medicaments and biological substances; Z79.82 Long term (current) use of aspirin; K80.80 Other cholelithiasis without obstruction; Z85.038 Personal history of other malignant neoplasm of large intestine; D64.9 Anemia, unspecified; Z87.891 Personal history of nicotine dependence; R47.01 Aphasia
CPT/HCPCS: J2405